=== PATIENT | female | born 1930 | race Caucasian/White ===

== ENCOUNTER 2016-10-31 16:52 | Inpatient (IN) | payer MEDICARE, OTHER ==
--- NOTE | ~2016-10-31 | CN ---
Consultation Report [facility] [address] [place]. [address] NAME: NORM CRANDALL : [birth year] STATUS : DIS IN [facility]#: [id number] AGE: 86 ADM/REG DATE : 10/31/16 MR#: [id number] REPORT SERV DATE: 11/02/16 DICTATED BY: TIMOTEO ROBBINS DATE: 11/02/16 REPORT STATUS : Draft TRANSCRIBED BY: MODJuancho DATE: 11/02/16 CONSULTATION DATE OF CONSULTATION: 11/01/2016 INDICATION: Bradycardia. HISTORY OF PRESENT ILLNESS: Ms. Crandall is an 86-year-old female, admitted to the hospital for cellulitis of her lower extremity. While here, she has had incidentally detected sinus bradycardia. This has sometimes occurred down into the 30s, but is usually in the 40s and 50s. No heart block. She denies any past history of cardiovascular problems. She denies recent syncope. Other than her infected foot, she can normally perform ADLs to her satisfaction. PAST MEDICAL HISTORY: Hypertension. SOCIAL HISTORY: She has good family support. No smoking. FAMILY HISTORY: Noncontributory. HOME MEDICATIONS: 1. Albuterol inhaler. 2. Klonopin 2 mg b.i.d. 3. Hydrochlorothiazide 25 mg daily. 4. [place] as needed. 5. Synthroid 88 mcg daily. 6. Lisinopril 40 mg daily. 7. Omeprazole 40 mg daily. 8. Potassium 10 mEq daily. 9. Simvastatin 40 mg daily. 10.Spiriva inhaler. ALLERGIES: SHE IS ALLERGIC TO ATIVAN. REVIEW OF SYSTEMS: A 10 system review was asked and is negative except for noted above in the history of present illness and for the following. She has fatigue, but that is chronic. As above, no presyncope or syncope. She does have extremity swelling, but that is also fairly chronic. PHYSICAL EXAMINATION: VITAL SIGNS: The temperature is 98.3, pulse 50, blood pressure 115/56. GENERAL: Ms. Crandall is a well-developed female, in no acute distress. She is alert and oriented to person and hospital. HEENT: Negative. She is not dehydrated. There is no JVD in her neck. Consultation Report [facility] [id number] [place]. [address] NAME: NORM CRANDALL : [birth year] STATUS : DIS IN PAT#: [id number] AGE: 86 ADM/REG DATE : 10/31/16 MR#: [id number] REPORT SERV DATE: 11/02/16 DICTATED BY: TIMOTEO ROBBINS DATE: 11/02/16 REPORT STATUS : Draft TRANSCRIBED BY: BRIGIDA DATE: 11/02/16 LUNGS: Clear. HEART: Tones are regular. A little slow. There is a slight murmur. ABDOMEN: The abdominal exam is negative. She has good bowel sounds. EXTREMITIES: Notable for bilateral lower extremity edema and redness. NEUROLOGIC: She moves all four extremities. SKIN: Shows cellulitis in her left lower extremity. LABORATORY DATA: White blood cell count 4, hematocrit 34, platelet count 110. Sodium is 139, potassium 4.1, BUN 32, creatinine 1.5. TSH 3.9, free T4 1.3. Electrocardiogram that shows sinus bradycardia and otherwise nothing significantly remarkable. Echocardiogram, this demonstrates an ejection fraction of 60% and otherwise, has no major unexpected changes. IMPRESSION: Sinus bradycardia. PLAN: On my questioning, Ms. Crandall seems to be asymptomatic from her sinus bradycardia. She is usually in the 40s and 50s. She denies any significant restriction in her ADLs. No danger of symptoms such as syncope. Therefore, she and I have agreed to watch this. She will be watched on telemetry while here. When she goes home, I would want her to come see me in about a month with a Holter monitor. I educated her on symptoms that she should look out for including presyncope and syncope as well as inability to perform daily chores/ADLs. [facility]/BRIGIDA Timoteo Robbins M.D. / [id number] CC: Lopez Allen M.D.
--- NOTE | ~2016-10-31 | HP ---
History And Physical [facility] [address] [facility] [place]. [address] NAME: NORM CRANDALL : [birth year] STATUS : DIS IN PAT#: [id number] AGE: 86 ADM/REG DATE : 10/31/16 MR#: [id number] REPORT SERV DATE: 11/01/16 DICTATED BY: FAHAD JHAVERI DATE: 10/31/16 REPORT STATUS : Draft TRANSCRIBED BY: MODL DATE: 10/31/16 DATE OF ADMISSION: 10/31/2016 CHIEF COMPLAINT: Bilateral feet swollen. HISTORY OF PRESENT ILLNESS: The patient is an 86-year-old female with past medical history of hypertension, who presents after having one week episode of bilateral foot swelling that has been constant, moderate severity, does have sharp pain without radiation. No nausea, vomiting, fever, chills, diarrhea, or shortness of breath or cough. The patient was to get scheduled with heel buffer for toenails which appeared to be looking affected, having excoriation, symptoms are worsened with range of motion, palpation, exertion. No relieving symptoms. Symptoms still currently present. REVIEW OF SYSTEMS: For additional 10-point review of systems negative for that noted in the HPI. PAST MEDICAL HISTORY: 1. Hypertension. 2. Swelling. FAMILY HISTORY: Hypertension. PAST SURGICAL HISTORY: Hysterectomy. SOCIAL HISTORY: . Accompanied by family. No smoking, alcohol, or illicits. Quit smoking approximately 35 years ago. PHYSICAL EXAMINATION: VITAL SIGNS: The patient's blood pressure 149/79, temperature 98.7, pulse 60, respirations 18, and O2 saturations 96% on room air. GENERAL: Obese. No acute distress. Calm, pleasant. EYES: No scleral icterus. EOMI. ENT: Nares patent. Poor dentition. RESPIRATORY: Clear to auscultation. No wheezes. No rales. CV: Does have bilateral pedal edema. Mild bradycardia 101-beat pulse ratio. No systolic ejection murmur. GI: Soft and nontender. : Deferred. MUSCULOSKELETAL: Moves all extremities x4 with erythema in toe digit bilaterally with poor toenail care, and what appears to be redness, erythema on feet bilaterally. LYMPH: Does have bilateral lower extremity edema. HEME: No bleeding or bruising. NEURO: Alert and oriented. Moves all extremities. PSYCH: Appropriate mood and affect. PERTINENT LABORATORY DATA: Lactate negative. History And Physical [address] [place]. [address] NAME: NORM CRANDALL : [birth year] STATUS : DIS IN PAT#: [id number] AGE: 86 ADM/REG DATE : 10/31/16 MR#: [id number] REPORT SERV DATE: 11/01/16 DICTATED BY: FAHAD JHAVERI DATE: 10/31/16 REPORT STATUS : Draft TRANSCRIBED BY: MODL DATE: 10/31/16 Chest without contrast: Severe kyphosis, hyperinflated lungs, underlying COPD, possible no acute CHF pattern. Urinalysis: Negative. Portable chest: No pneumothorax. BNP 33. INR 1.1. D-dimer negative. Troponin negative. CBC grossly within normal limits except for platelets at 139, bands 9, WBCs 6.3, H and H 12.6 and 37.2. Reactive lymphocytes: Occasional. Sodium 137, potassium 4.7, chloride 104, bicarb 28, BUN and creatinine 32 and 1.56, glucose 74, and calcium 9.7. HOME MEDICATIONS: 1. Ventolin. 2. Klonopin. 3. Vitamin D. 4. Hydrochlorothiazide. 5. Hurricane. 6. Synthroid. 7. Prinivil. 8. Prilosec. 9. Klor-Con. 10.Simvastatin. 11.Spiriva. ALLERGIES: ATIVAN. ASSESSMENT AND PLAN: 1. Acute cellulitis. 2. Edema. 3. Regular chest x-ray. 4. Hypertension. 5. Questionable acute kidney injury versus chronic kidney disease. 6. Bradycardia. 7. 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 PLAN: 1. For acute cellulitis, vancomycin started. Elevate legs. Podiatry consult. 2. Edema. Check echocardiogram. Positive mild CKD versus YELITZA. Lasix x1 dose. Check ultrasound of the lower extremities. 3. Regular chest x-ray. CT noted questionable COPD. Stopped smoking 35 years ago. History And Physical [facility] [address] [place]. [address] NAME: NORM CRANDALL : [birth year] STATUS : DIS IN PAT#: [id number] AGE: 86 ADM/REG DATE : 10/31/16 MR#: [id number] REPORT SERV DATE: 11/01/16 DICTATED BY: FAHAD JHAVERI DATE: 10/31/16 REPORT STATUS : Draft TRANSCRIBED BY: MODL DATE: 10/31/16 Monitor. Not requiring oxygen currently. 4. Hypertension. On medications, thiazide and lisinopril. 5. YELITZA versus CKD. Monitor. Check urine lytes. She is currently on thiazide and lisinopril. We will monitor clinical response and treatment for cellulitis. 6. Bradycardia. Check echocardiogram and TSH, not currently appreciating any qamar agents on med list. We will again treat underlying infection and monitor on telemetry. EKG shows sinus bradycardia with a rate of 45, QTc 425. 7. 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 We will need serial monitoring. The patient has quit smoking over 35 years ago. Incidental finding. Anticipate greater than two midnight inpatient stay. DDN/MODL Fahad Jhaveri MD / [id number] CC: Lopez Allen M.D.
--- NOTE | ~2016-10-31 | DS ---
Discharge Summary [facility] [address] [place]. [address] NAME: NORM CRANDALL : [birth year] STATUS : DIS IN PAT#: [id number] AGE: 86 ADM/REG DATE : 10/31/16 MR#: [id number] REPORT SERV DATE: 11/04/16 DICTATED BY: LOPEZ ALLEN DATE: 11/03/16 REPORT STATUS : Draft TRANSCRIBED BY: MODL DATE: 11/03/16 ADMISSION DATE: 10/31/2016 DISCHARGE DATE: 11/03/2016 DISCHARGE DIAGNOSES: 1. Bilateral lower extremity cellulitis, currently resolved. 2. Bilateral edema, currently resolved. 3. Mild acute kidney injury, stable. 4. Severe onychomycosis of both feet, to be followed up by Podiatry in the outpatient setting. 5. Hypertension. 6. Sinus bradycardia, to be followed by Dr. Bart Robbins in the outpatient setting. 7. Ascending aneurysm, incidental find. Continued to monitor in the outpatient setting. CONSULTANTS DURING THIS HOSPITALIZATION: Dr. Bart Robbins of Cardiology, Dr. Wayne of Podiatry. INVASIVE PROCEDURES DONE DURING THIS HOSPITALIZATION: Debridement of both bilateral toenails and feet. BRIEF HISTORY OF PRESENT ILLNESS: The patient is an 86-year-old female with past medical history of hypertension, presented with one-week episode of bilateral foot swelling that has been constant, moderate severe, and sharp pain, so she was admitted. For detailed history and physical exam, please see note dictated by Dr. Liang Burr on 10/31/2016. HOSPITAL COURSE: After being admitted to the hospital, this patient was given broad-spectrum antibiotics. Blood cultures were done which remained negative. She was switched to IV Unasyn as to narrow the spectrum of her antibiotics. There was severe problems with onychomycosis and tenia pedis. Topical antifungal powder was applied. Dr. Wayne of Podiatry saw the patient and debrided all nails and recommended that she follow up in the outpatient setting. For the onychomycosis. During this hospital stay. She did have significant bradycardia with a heart rate down in the 29 range at one point, but her blood pressure remained continually stable, so she received an echocardiogram which was normal without wall motion abnormalities and an EF of 60%. Dr. Bart Robbins saw the patient for bradycardia and recommended observation and outpatient followup. This patient is doing well and she is being switched to oral medications for her cellulitis to finish a course of 10 days of antibiotics in the outpatient setting. She is being discharged in stable condition. DISCHARGE DISPOSITION: Home. DISCHARGE ACTIVITY: As tolerated. DISCHARGE DIET: Low-sodium diet. DISCHARGE MEDICATIONS: Augmentin 875 mg p.o. twice daily for six more days, vitamin D 50,000 Discharge Summary [address] [address] NAME: NORM CRANDALL : [birth year] STATUS : DIS IN PAT#: [id number] AGE: 86 ADM/REG DATE : 10/31/16 MR#: [id number] REPORT SERV DATE: 11/04/16 DICTATED BY: LOPEZ ALLEN DATE: 11/03/16 REPORT STATUS : Draft TRANSCRIBED BY: BRIGIDA DATE: 11/03/16 units once every 30 days, hydrochlorothiazide 25 mg once every morning to be held for three days, [place] 10/325 half a tablet 3 times daily p.r.n. scheduled for pain, levothyroxine 88 mcg once daily, potassium 10 mEq once daily, Zocor 40 mg once daily, Spiriva one capsule inhalation once daily, Klonopin 2 mg p.o. twice daily, albuterol two puffs every six hours p.r.n., Prilosec 40 mg daily p.r.n. DISCHARGE FOLLOWUP: Will be with primary care physician in one to two weeks, with Podiatry in three months; with Dr. Bart Robbins as get as ordered by him. More than 30 minutes spent planning this patient's discharge, reconciling medications, writing prescriptions, discussing hospital care, and followup with the patient and documenting this discharge. [facility]/BRIGIDA Lopez Allen M.D. / [id number] CC: Jet Ragsdale TAMMY Michael C Allan, M.D. David Q. Anderson, DPM
[2016-10-31 15:07] LABS: HEMATOCRIT 37.2 % (36.0-48.0); HEMOGLOBIN 12.6 g/dL (12.0-16.0); MEAN CORPUS HGB CONC 33.9 g/dL (32.0-36.0); MEAN CORPUSCULAR HEMOGLOB 29.9 pg (26.0-34.0); MEAN CORPUSCULAR VOLUME 88.4 fL (80-100); MEAN PLATELET VOLUME 9.8 fL (9.2-13.0); PLATELET COUNT 139 10/3/uL (150-400); RBC DISTRIBUTION WIDTH 13.1 % (12.0-16.0); RED CELL COUNT 4.21 10/6/uL (4.0-5.6); WHITE BLOOD CELLS 6.3 10/3/uL (4.5-10.5)
[2016-10-31 15:10] LABS: DIFFERENTIAL ORDERED Y
[2016-10-31 15:18] LABS: BUN (BLOOD UREA NITROGEN) 32 MG/DL (6-23); CALCIUM, SERUM 9.7 MG/DL (8.5-10.4); CHLORIDE, SERUM 104 MMOL/L (96-112); CO2 (CARBON DIOXIDE) 28 MMOL/L (24-34); CREATININE 1.56 MG/DL (0.55-1.02); GFR AFRICAN AMERICAN 34 ML/MIN (>=60); GFR NON AFRICAN AMERICAN 29 ML/MIN (>=60); GLUCOSE, SERUM 74 MG/DL (60-99); POTASSIUM, SERUM 4.7 MMOL/L (3.5-5.3); SODIUM, SERUM 137 MMOL/L (135-148)
[2016-10-31 15:43] LABS: BAND NEUTROPHILS 9 %; EOSINOPHILS 6 %; EOSINOPHILS ABSOLUTE (CALC) 0.38 10/3/uL (0.0-0.53); IMMATURE GRANS ABSOLUTE (CALC) 0.06 10/3/uL (0.0-0.11); LYMPHOCYTES 34 %; LYMPHOCYTES ABSOLUTE (CALC) 2.14 10/3/uL (0.67-4.30); METAMYELOCYTES 1 %; MONOCYTES 2 %; MONOCYTES ABSOLUTE (CALC) 0.13 10/3/uL (0.21-1.20); NEUTROPHILS ABSOLUTE (CALC) 3.59 10/3/uL (2.02-8.40); PLATELET ESTIMATE SLT DEC (ADEQUATE); REACTIVE LYMPHS OCC (0-2%) (0-5%); SEGMENTED NEUTROPHIL (0) 48 %; TOTAL NUCLEATED CELLS 100
[2016-10-31 15:44] LABS: GIANT PLATELET RARE
[2016-10-31 15:45] LABS: TEARDROP SHAPED RBCS OCC (0-2/OIF)
[~2016-10-31 16:52] MED LIST: ADVAIR250 INH; ALEVE220 MG PO; ATIVAN2 MG PO; D3 PO; DSS PO; ENDOCET1 TAB PO; FLORASTOR250 MG PO; HCTZ25B PO; HEPA50006 SC; HYDROCHLOROT25 MG PO; K-TABS10 MEQ PO; KLONO1 PO; KLONO2 PO; KLOR-CON 1010 MEQ PO; LEVAQUIN750 MG PO; LEVOTHYROXIN75 MCG PO; LEVOTHYROXIN88 MCG PO; LISINOPRIL40 MG PO; LOM PO; MICRO-K10 MEQ PO; MONODOX100 MG PO; MULTIVITAMI1 PO; NEUR400 PO; NORCO1 TAB PO; P10; P20 PO; PCET PO; PERCOCET1 TA4 PO; PRILOSEC OTC20 MG PO; PRILOSEC40 MG PO; PRIN2.5 PO; PRIN20 PO; PRINZIDE1 TA1 PO; PROAIR HFA INH; PROTONIX PO; PROVHFA INH; SPIRIVA INH; SYN88 PO; T PO; VENTOLIN HFA INH; VITAMIN D PO; VITAMIN D1000 UNI1 PO; ZOCOR40 PO
[2016-10-31 16:55] LABS: INTERNATIONAL NORMAL RATI 1.1 UNITS (-); PARTIAL THROMBO TIME 30.3 SEC (22.5-37.2); PROTIME (NOT ORD) 14.5 SEC (12.0-14.5)
[2016-10-31 16:57] LABS: D-DIMER QUANTITATIVE 0.47 ug/mLFEU (< 0.50)
[2016-10-31 17:38] LABS: ASCORBIC ACID (UR NOT ORDER) NEG (NEG); BILIRUBIN, URINE NEGATIVE (NEG); ER URINALYSIS TAT 0 Hrs 08 Mins; KETONE, URINE NEGATIVE (NEG); LEUKOCYTE ESTERASE(NOT OR TRACE (NEG); NITRITE (URINE) NEG (NEG); WBC (NOT ORDERED) (RFLEX) 2 (0-5)
[2016-10-31] MEDS ORDERED: KLONO2 PO (20:16)
[2016-10-31] MEDS ORDERED: LISINOPRIL40 MG PO (20:16)
[2016-10-31] MEDS ORDERED: HYDROCHLOROT25 MG PO (20:17)
[2016-10-31] MEDS ORDERED: ZOCOR40 PO (20:17)
[2016-10-31] MEDS ORDERED: VENTOLIN HFA INH (20:17)
[2016-10-31] MEDS ORDERED: KLOR-CON 1010 MEQ PO (20:17)
[2016-10-31] MEDS ORDERED: SPIRIVA INH (20:18)
[2016-10-31] MEDS ORDERED: SYN88 PO (20:18)
[2016-10-31] MEDS ORDERED: NORCO1 TAB PO (20:19)
[2016-10-31] MEDS ORDERED: PRILOSEC40 MG PO (20:20)
[2016-10-31] MEDS ORDERED: VITD PO (20:21)
[2016-10-31 20:25] LABS: LACTATE 0.8 MMOL/L (0.3-2.4)
[2016-11-01 00:28] LABS: BASOPHILS 0.2 %; BASOPHILS ABSOLUTE 0.01 10/3/uL (0.0-0.16); EOSINOPHILS 4.2 %; EOSINOPHILS ABSOLUTE 0.18 10/3/uL (0.0-0.53); HEMOGLOBIN 12.4 g/dL (12.0-16.0); LYMPHOCYTES 30.1 %; LYMPHOCYTES ABSOLUTE 1.29 10/3/uL (0.67-4.30); MEAN CORPUS HGB CONC 34.4 g/dL (32.0-36.0); MEAN CORPUSCULAR HEMOGLOB 30.2 pg (26.0-34.0); MEAN CORPUSCULAR VOLUME 87.6 fL (80-100); MEAN PLATELET VOLUME 9.3 fL (9.2-13.0); MONOCYTES 9.3 %; NEUTROPHILS 56.2 %; NEUTROPHILS ABSOLUTE 2.41 10/3/uL (2.02-8.40); PLATELET COUNT 130 10/3/uL (150-400); RBC DISTRIBUTION WIDTH 12.7 % (12.0-16.0); RED CELL COUNT 4.11 10/6/uL (4.0-5.6); WHITE BLOOD CELLS 4.3 10/3/uL (4.5-10.5)
[2016-11-01 00:30] LABS: MANUAL DIFF NO %
[2016-11-01 00:51] LABS: A/G RATIO 1.2 (0.7-1.9); ALBUMIN 3.6 G/DL (3.5-5.0); ALKALINE PHOSPHATASE 58 U/L (45-117); BUN (BLOOD UREA NITROGEN) 30 MG/DL (6-23); CALCIUM, SERUM 9.8 MG/DL (8.5-10.4); CHLORIDE, SERUM 104 MMOL/L (96-112); CO2 (CARBON DIOXIDE) 27 MMOL/L (24-34); CREATININE 1.49 MG/DL (0.55-1.02); GFR AFRICAN AMERICAN 36 ML/MIN (>=60); GFR NON AFRICAN AMERICAN 31 ML/MIN (>=60); GLUCOSE, SERUM 83 MG/DL (60-99); PHOSPHORUS, SERUM 3.2 MG/DL (2.5-4.5); POTASSIUM, SERUM 3.8 MMOL/L (3.5-5.3); SGOT(AST) 18 U/L (5-40); SGPT(ALT) 14 U/L (5-65); SODIUM, SERUM 139 MMOL/L (135-148); TOTAL BILIRUBIN 0.5 MG/DL (0-1.2); TOTAL PROTEIN 6.6 G/DL (6.0-8.5)
[2016-11-01 07:32] LABS: BASOPHILS 0.5 %; BASOPHILS ABSOLUTE 0.02 10/3/uL (0.0-0.16); EOSINOPHILS 5.3 %; EOSINOPHILS ABSOLUTE 0.21 10/3/uL (0.0-0.53); HEMATOCRIT 34.1 % (36.0-48.0); HEMOGLOBIN 11.4 g/dL (12.0-16.0); IMMATURE GRANULOCYTES 0.3 %; IMMATURE GRANULOCYTES ABSOLUTE 0.01 10/3/uL (0.0-0.11); LYMPHOCYTES 28.7 %; LYMPHOCYTES ABSOLUTE 1.14 10/3/uL (0.67-4.30); MANUAL DIFF NO %; MEAN CORPUS HGB CONC 33.4 g/dL (32.0-36.0); MEAN CORPUSCULAR HEMOGLOB 29.7 pg (26.0-34.0); MEAN CORPUSCULAR VOLUME 88.8 fL (80-100); MEAN PLATELET VOLUME 9.6 fL (9.2-13.0); MONOCYTES 10.3 %; MONOCYTES ABSOLUTE 0.41 10/3/uL (0.21-1.20); NEUTROPHILS 54.9 %; NEUTROPHILS ABSOLUTE 2.18 10/3/uL (2.02-8.40); PLATELET COUNT 110 10/3/uL (150-400); RED CELL COUNT 3.84 10/6/uL (4.0-5.6)
[2016-11-01 07:50] LABS: A/G RATIO 1.2 (0.7-1.9); ALBUMIN 3.2 G/DL (3.5-5.0); ALKALINE PHOSPHATASE 49 U/L (45-117); BUN (BLOOD UREA NITROGEN) 32 MG/DL (6-23); CALCIUM, SERUM 9.2 MG/DL (8.5-10.4); CHLORIDE, SERUM 106 MMOL/L (96-112); CO2 (CARBON DIOXIDE) 27 MMOL/L (24-34); GFR AFRICAN AMERICAN 36 ML/MIN (>=60); GFR NON AFRICAN AMERICAN 31 ML/MIN (>=60); GLOBULIN 2.6 G/DL (2.5-4.1); GLUCOSE, SERUM 84 MG/DL (60-99); POTASSIUM, SERUM 4.1 MMOL/L (3.5-5.3); SGOT(AST) 17 U/L (5-40); SGPT(ALT) 12 U/L (5-65); SODIUM, SERUM 139 MMOL/L (135-148); TOTAL BILIRUBIN 0.4 MG/DL (0-1.2); TOTAL PROTEIN 5.8 G/DL (6.0-8.5)
[2016-11-01 11:29] LABS: FREE T4 1.34 NG/DL (0.76-1.46)
[2016-11-02 06:28] LABS: BASOPHILS 0.6 %; BASOPHILS ABSOLUTE 0.03 10/3/uL (0.0-0.16); EOSINOPHILS 5.1 %; EOSINOPHILS ABSOLUTE 0.26 10/3/uL (0.0-0.53); HEMATOCRIT 34.7 % (36.0-48.0); HEMOGLOBIN 11.8 g/dL (12.0-16.0); IMMATURE GRANULOCYTES 0.2 %; IMMATURE GRANULOCYTES ABSOLUTE 0.01 10/3/uL (0.0-0.11); LYMPHOCYTES 27.8 %; LYMPHOCYTES ABSOLUTE 1.41 10/3/uL (0.67-4.30); MEAN CORPUSCULAR HEMOGLOB 29.9 pg (26.0-34.0); MEAN CORPUSCULAR VOLUME 88.1 fL (80-100); MEAN PLATELET VOLUME 9.8 fL (9.2-13.0); MONOCYTES 10.3 %; MONOCYTES ABSOLUTE 0.52 10/3/uL (0.21-1.20); NEUTROPHILS ABSOLUTE 2.84 10/3/uL (2.02-8.40); PLATELET COUNT 124 10/3/uL (150-400); RED CELL COUNT 3.94 10/6/uL (4.0-5.6); WHITE BLOOD CELLS 5.1 10/3/uL (4.5-10.5)
[2016-11-02 06:29] LABS: MANUAL DIFF NO %
[2016-11-02 06:39] LABS: ALBUMIN 3.5 G/DL (3.5-5.0); CALCIUM, SERUM 8.9 MG/DL (8.5-10.4); CHLORIDE, SERUM 106 MMOL/L (96-112); CO2 (CARBON DIOXIDE) 26 MMOL/L (24-34); CREATININE 1.76 MG/DL (0.55-1.02); GFR AFRICAN AMERICAN 29 ML/MIN (>=60); GFR NON AFRICAN AMERICAN 25 ML/MIN (>=60); GLUCOSE, SERUM 93 MG/DL (60-99); PHOSPHORUS, SERUM 3.9 MG/DL (2.5-4.5); POTASSIUM, SERUM 4.3 MMOL/L (3.5-5.3); SODIUM, SERUM 141 MMOL/L (135-148)
[2016-11-02 06:40] LABS: BUN (BLOOD UREA NITROGEN) 36 MG/DL (6-23)
[2016-11-03 04:35] LABS: BASOPHILS 0.5 %; BASOPHILS ABSOLUTE 0.02 10/3/uL (0.0-0.16); EOSINOPHILS 5.3 %; EOSINOPHILS ABSOLUTE 0.23 10/3/uL (0.0-0.53); HEMATOCRIT 33.3 % (36.0-48.0); HEMOGLOBIN 11.5 g/dL (12.0-16.0); IMMATURE GRANULOCYTES 0.2 %; IMMATURE GRANULOCYTES ABSOLUTE 0.01 10/3/uL (0.0-0.11); LYMPHOCYTES 35.5 %; LYMPHOCYTES ABSOLUTE 1.54 10/3/uL (0.67-4.30); MANUAL DIFF NO %; MEAN CORPUS HGB CONC 34.5 g/dL (32.0-36.0); MEAN CORPUSCULAR HEMOGLOB 30.3 pg (26.0-34.0); MEAN CORPUSCULAR VOLUME 87.9 fL (80-100); MEAN PLATELET VOLUME 9.7 fL (9.2-13.0); MONOCYTES 10.6 %; MONOCYTES ABSOLUTE 0.46 10/3/uL (0.21-1.20); NEUTROPHILS 47.9 %; NEUTROPHILS ABSOLUTE 2.08 10/3/uL (2.02-8.40); PLATELET COUNT 109 10/3/uL (150-400); RED CELL COUNT 3.79 10/6/uL (4.0-5.6); WHITE BLOOD CELLS 4.3 10/3/uL (4.5-10.5)
[2016-11-03 04:53] LABS: ALBUMIN 3.4 G/DL (3.5-5.0); BUN (BLOOD UREA NITROGEN) 36 MG/DL (6-23); CALCIUM, SERUM 9.1 MG/DL (8.5-10.4); CHLORIDE, SERUM 104 MMOL/L (96-112); CO2 (CARBON DIOXIDE) 28 MMOL/L (24-34); CREATININE 1.83 MG/DL (0.55-1.02); GFR AFRICAN AMERICAN 28 ML/MIN (>=60); GFR NON AFRICAN AMERICAN 24 ML/MIN (>=60); GLUCOSE, SERUM 83 MG/DL (60-99); PHOSPHORUS, SERUM 3.8 MG/DL (2.5-4.5); POTASSIUM, SERUM 4.2 MMOL/L (3.5-5.3); SODIUM, SERUM 141 MMOL/L (135-148)
[2016-11-03] MEDS ORDERED: NYSTATPOW TOP (08:57)
[2016-11-03] MEDS ORDERED: AUG875 PO (08:58)
== END 2016-11-03 14:48 | disposition home or self-care (01) | DRG 603 ==
LOC: ER 16:52 → 4SO 20:12
PROVIDERS: Emergency Medicine; Internal Medicine; Nurse Practitioner; Student in an Organized Health Care Education/Training Program
DX: L03.116 Cellulitis of left lower limb (principal); N17.9 Acute kidney failure, unspecified; R00.1 Bradycardia, unspecified; J44.9 Chronic obstructive pulmonary disease, unspecified; L03.115 Cellulitis of right lower limb; Z87.891 Personal history of nicotine dependence; E66.9 Obesity, unspecified; Z68.32 Body mass index [BMI] 32.0-32.9, adult; Z79.891 Long term (current) use of opiate analgesic; I71.4 Abdominal aortic aneurysm, without rupture; Z88.8 Allergy status to other drugs, medicaments and biological substances; B35.1 Tinea unguium; R60.9 Edema, unspecified; R60.0 Localized edema; B35.3 Tinea pedis; I10 Essential (primary) hypertension
CPT/HCPCS: 71010; 71250; 80048; 80053; 80069; 81001; 83605; 83735; 83880; 84100; 84439; 84443; 84484; 85007; 85025; 85027; 85379; 85610; 85730; 87040; 87150; 93005; 93970; 96374; 99285; A9270-GY; C8929; J0295; J1940; J3370; Q9957

== ENCOUNTER 2016-12-04 16:42 | Emergency (ER) | payer MEDICARE, OTHER ==
[~2016-12-04 16:42] MED LIST changes: +AUG875 PO; +NYSTATPOW TOP; +VITD PO
[2016-12-04 17:37] LABS: BASOPHILS 0.3 %; BASOPHILS ABSOLUTE 0.02 10/3/uL (0.0-0.16); EOSINOPHILS 1.5 %; EOSINOPHILS ABSOLUTE 0.09 10/3/uL (0.0-0.53); HEMOGLOBIN 12.6 g/dL (12.0-16.0); IMMATURE GRANULOCYTES 0.2 %; IMMATURE GRANULOCYTES ABSOLUTE 0.01 10/3/uL (0.0-0.11); LYMPHOCYTES 22.7 %; LYMPHOCYTES ABSOLUTE 1.33 10/3/uL (0.67-4.30); MEAN CORPUS HGB CONC 34.2 g/dL (32.0-36.0); MEAN CORPUSCULAR HEMOGLOB 29.7 pg (26.0-34.0); MEAN CORPUSCULAR VOLUME 86.8 fL (80-100); MEAN PLATELET VOLUME 9.3 fL (9.2-13.0); MONOCYTES 10.6 %; MONOCYTES ABSOLUTE 0.62 10/3/uL (0.21-1.20); NEUTROPHILS 64.7 %; NEUTROPHILS ABSOLUTE 3.79 10/3/uL (2.02-8.40); RBC DISTRIBUTION WIDTH 12.7 % (12.0-16.0); RED CELL COUNT 4.24 10/6/uL (4.0-5.6); WHITE BLOOD CELLS 5.9 10/3/uL (4.5-10.5)
[2016-12-04 17:38] LABS: HEMATOCRIT 36.8 % (36.0-48.0); MANUAL DIFF NO %; PLATELET COUNT 146 10/3/uL (150-400)
[2016-12-04 17:45] LABS: INTERNATIONAL NORMAL RATI 1.2 UNITS (-); PARTIAL THROMBO TIME 31.2 SEC (22.5-37.2); PROTIME (NOT ORD) 14.6 SEC (12.0-14.5)
[2016-12-04 17:53] LABS: ASCORBIC ACID (UR NOT ORDER) NEG (NEG); BILIRUBIN, URINE NEGATIVE (NEG); ER URINALYSIS TAT 0 Hrs 12 Mins; KETONE, URINE NEGATIVE (NEG); LEUKOCYTE ESTERASE(NOT OR NEG (NEG); NITRITE (URINE) NEG (NEG); WBC (NOT ORDERED) (RFLEX) < 1 (0-5)
[2016-12-04 17:53] LABS: CALCIUM, SERUM 9.5 MG/DL (8.5-10.4); CHEST PAIN PROFILE TAT 0 Hrs 22 Mins; CHLORIDE, SERUM 101 MMOL/L (96-112); CO2 (CARBON DIOXIDE) 30 MMOL/L (24-34); GFR AFRICAN AMERICAN 56 ML/MIN (>=60); GFR NON AFRICAN AMERICAN 48 ML/MIN (>=60); GLUCOSE, SERUM 79 MG/DL (60-99); POTASSIUM, SERUM 4.6 MMOL/L (3.5-5.3); SODIUM, SERUM 136 MMOL/L (135-148); TROPONIN I <0.02 NG/ML (<0.05)
[2016-12-04 17:54] LABS: BUN (BLOOD UREA NITROGEN) 24 MG/DL (6-23); CREATININE 1.04 MG/DL (0.55-1.02)
== END 2016-12-04 19:19 | disposition home or self-care (01) ==
LOC: ER 16:42
PROVIDERS: Emergency Medicine
DX: L03.116 Cellulitis of left lower limb (principal); L03.115 Cellulitis of right lower limb; R60.0 Localized edema; I87.2 Venous insufficiency (chronic) (peripheral); I12.9 Hypertensive chronic kidney disease with stage 1 through stage 4 chronic kidney disease, or unspecified chronic kidney disease; N18.9 Chronic kidney disease, unspecified; Z87.891 Personal history of nicotine dependence; Z88.1 Allergy status to other antibiotic agents; Z88.8 Allergy status to other drugs, medicaments and biological substances; Z79.899 Other long term (current) drug therapy
CPT/HCPCS: 71010; 80048; 81001; 83735; 83880; 84484; 85025; 85610; 85730; 93005; 93971; 96374; 99284; J0690